=== PATIENT | male | born 1950 | race Caucasian/White ===

== ENCOUNTER 2017-01-31 10:49 | Inpatient (IN) | payer OTHER ==
[~2017-01-31] VITALS: Ht 180.3 cm; Wt 116.1 kg
[2017-02-22] MEDS ORDERED: ASPIRIN81 MG (13:24)
[2017-02-22] MEDS ORDERED: VITAMIN D3400 UNIT PO (13:24)
[2017-02-22] MEDS ORDERED: PROSTEON TABLE1 EACH PO (13:25)
--- NOTE | 2017-02-25 09:07 | NUR ---
02/25/17 0907 Farnaz Marshall 0846 - PT ARRIVED TO PACU. MAINTAINING OWN AIRWAY. RESPONDING TO STIMULI. UNABLE TO ASSESS SPINAL LEVEL AT THIS TIME R/T PT NOT ANSWERING QUESITONS.
--- NOTE | 2017-02-25 09:49 | NUR ---
PATIENT ARRIVED TO MED SURG. PATIENT DENIES PAIN AT THIS TIME.
--- NOTE | 2017-02-25 10:22 | NUR ---
ASSESSMENT COMPLETE. RIGHT KNEE DRESSING IS CDI. PATIENT ENDORSES NUMBNESS AND TINGLING TO BILATERAL LEGS. KRYO CUFF IN PLACE, VSS. 0930 TORADOL GIVEN FOR PACU. IVF INFUSING AT 125ML/HOUR. IN ROOM WITH PATIENT. O2 SATS ARE 93% ON 2L NC. CLEAR LIQUID TRAY ORDERD FOR PATIENT.
--- NOTE | 2017-02-25 11:05 | NUR ---
PATIENT CONTINUES TO BE PAIN FREE. VITALS ARE STABLE. PATIENT TOLERATED CLEAR LIQUID DIET AND IS SLOWLY ADVANCING TO REGULAR DIET.
--- NOTE | 2017-02-25 11:27 | NUR ---
REVIEWED MEDICATIONS, PATIENT IS TAKING ASPIRIN AND VITAMIN D PRIOR TO ADMISSION, HE HAS PICKED UP THE RIVAROXABAN DISCHARGE PRESCRIPTION 7 [facility] SU[facility]
--- NOTE | 2017-02-25 13:10 | NUR ---
PT RESTING IN BED. ALERT AND ORIENTED. WELCOMED ME IN, AND SAID HE IS MOTIVATED TO RECOVER. HE PLANS ON DOING "EVERYTHING" ASKED OF HIM. HE IS PLANNING ON P.T. TO BEGIN AND ENCOURAGED HIM TO STAY ON TOP OF HIS PAIN. HE MENTIONED THAT HE HAD HEARD THAT. PT REQUESTED PRAYER, WILL FOLLOW NEEDED
--- NOTE | 2017-02-25 14:22 | NUR ---
PT WORKED WITH PHYSICAL THERAPY. TOLERATED WELL PER THERAPIST. NO COMPLAINTS OF PAIN.
--- NOTE | 2017-02-25 17:13 | NUR ---
MACIAS PLACED FOR 862ML BLADDER SCAN AFTER UNABLE TO VOID. RIGHT KNEE DRESSING C/D/I. SBA WITH FWW. PAIN WELL CONTROLLED WITH SCHEDULED MEDS. REG DIET. [id number] @ 125.
--- NOTE | 2017-02-25 19:50 | NUR ---
REPORT RECEIVED FROM PROJECT MANAGER RETAIL.
--- NOTE | 2017-02-25 22:55 | NUR ---
PT ASSESSMENT COMPLETE. PT RATES PAIN 1/10 TO R KNEE, DENIES NAUSEA, REPORTS THAT ITCHING IS WELL CONTROLLED. MEPILEX DRESSING TO R KNEE HAS A SMALL AMOUNT OF RED SHADOWING PRESENT WITH NO SHADOWING PRESENT TO ABD OR LORENA WRAP. CRYOCUFF TO R KNEE. TEDS AND SCD'S PRESENT BILATERALLY. CMS INTACT. PT REPORTS SLIGHT NUMBNESS CONTNUING TO BE PRESENT TO LOWER EXTREMITIES. MACIAS DRAINING CLEAR YELLOW URINE. PT DENIES NEEDS AT THIS TIME, SITTING UP PLAYING CELL PHONE. CALL LIGHT WITHIN REACH.
--- NOTE | 2017-02-26 01:35 | NUR ---
PT RESTING WITH EYES CLOSED. RESPIRATIONS EVEN AND UNLABORED. SAO2 @ 87%. PT WAKES EASILY TO DOOR OPENING. STATES THE WAS "SOUND ASLEEP". PT DENIES PAIN, STATES THAT ITCHING IS TOLERABLE. O2 PLACED @ 1LPM FOR DESATURATION, SAO2 @ 94%. PT DENIES NEEDS AT THIS TIME. CALL LIGHT EDUCATINO PROVIDED PT STATES UNDERSTANDING, CALL LIGHT WITHIN REACH.
--- NOTE | 2017-02-26 03:05 | NUR ---
PT ASSESSMENT COMPLETED. PT RATES PAIN 0/10. STATES THAT ITCHING IS WELL CONTROLLED. DENIES NAUSEA. SAO2 94-96% ON 1 LPM. SHADOWING REMAINS UNCHANGED FROM PREVIOUS ASSESSMENT. CMS REMAINS INTACT. PT STATES THAT NUMBNESS TO LOWER EXTREMITIES IS SUBSIDING. CRYOCUFF, TEDS, SCDS ON PLACE. IS AT BEDSIDE. MACIAS DRAINING CLEAR YELLOW URINE. IV SL. PT'S ICE WATER REFILLED. DENIES OTHER NEEDS AT THIS TIME. CALL LIGHT WITHIN REACH.
--- NOTE | 2017-02-26 04:01 | NUR ---
PT SITTING IN BED AWAKE, PLAYING ON HIS CELL PHONE. PT STATES THAT HE IS "WIDE AWAKE". REPORTS THAT ITCHING IS INCREASING. REQUESTS PRN BENADRYL. PT DENIES PAIN, NAUSEA. ALL PRECAUTIONS REMAIN IN PLACE. PT DENIES FURTHER NEEDS, CALL LIGHT WITHIN REACH.
--- NOTE | 2017-02-26 04:59 | NUR ---
PT SLEPT MOST OF NIGHT. DENIES PAIN, N/V. PT C/O ITCHING WELL CONTROLLED WITH PRN BENADRYL. MEPILEX, ABD, AND LORENA WRAP PRESENT TO R KNEE. SMALL AMOUNT OF RED SHADOWING PRESENT TO MEPILEX. CRYOCUFF, TEDS, AND SCD'S IN PLACE. IS AT BEDSIDE. SBA WITH FWW. REGULAR DIET. IV SL.
--- NOTE | 2017-02-26 06:53 | NUR ---
PT ASSESSMENT COMPLETED. PT STATES THAT ITCHING IS WELL CONTROLLED. DENIES NAUSEA. RATES PAIN 3/10. REPORTS THAT 5/10 IS TOLERABLE, STATES THAT HE IS COMFORTABLE. PAIN MANAGEMENT EDUCATION PRIVDED PT STATES UNDERSTANDING. DRESSING TO R KNEE C/D/I, UNCHANGED FROM PREVIOUS ASSESSMENT. ALL PRECAUTIONS REMAIN IN PLACE. MACIAS CATH REMOVED PER STANDING ORDER. PT TOLERATED WELL. PT DENIES NEEDS AT THIS TIME. CALL LIGHT WITHIN REACH.
--- NOTE | 2017-02-26 08:05 | NUR ---
PT. IS SITTING IN CHAIR EATING BREAKFAST. MORNING MEDS GIVEN, ASSESSMENT DONE. PT. RATES PAIN AT 2/10 IN RIGHT KNEE. DENIES NEEDS FOR NV PAIN MEDS. NO FURTHER NEEDS AT THIS TIME.
--- NOTE | 2017-02-26 08:53 | OR ---
[facility] [address], [place] [address] Signed DATE OF OPERATION: 02/25/2017. PREOPERATIVE DIAGNOSIS: DJD, right knee. POSTOPERATIVE DIAGNOSIS: DJD, right knee. PROCEDURE PERFORMED: Right total knee arthroplasty with computer navigation. SURGEON: Ysabel Watson MD. ASSISTANTS Gianna Whitman PA-C. Gianna was present for the entire surgery in critical positioning, retraction, wound closure. SUDHA Gibbons. TOURNIQUET TIME: 66 minutes. IMPLANTS: [place] Triathlon size 6, femur, size 6 tibia, 9 mm insert and 40 patella. BRIEF HISTORY: Sacha is a 67-year-old gentleman with progressive worsening of osteoarthritis. Nonoperative treatment failed and he wished to proceed with operative intervention. Risks, benefits alternatives were discussed at length. He elected to proceed. Once consent was obtained, he was taken to the operating room. After adequate anesthesia, he was placed on operating table. All downside pressure points were well padded. The right k n ee was placed in well-padded proximal thigh tourniquet, prepped and draped in a standard sterile fashion, exsanguinated using Esmarch bandage. Tourniquet inflated to 250 mmHg. Standard anterior approach through curved incision was taken through the skin a n d subcutaneous tissue. Median parapatellar arthrotomy was performed. The infrapatellar fat pad was excised and the insoles of a sleeve, subperiosteal around the level of the posterior corner. The knee was flexed. The ACL was transected as was the anterior horns of the menisci. The navigation guide was pinned to the distal femur. The femur was registered with the computer. The cutting block was then pinned in neutral alignment. The distal femoral cut was made. The distal femur sized to a 6 and the AP cutting block was pinned in line with the epicondylar axis. Anterior, posterior, chamfer cuts were made. The bone and osteophytes removed. Attention was then turned to proximal tibia. Navigation guide was pinned and the tibia was registered with the computer. The cutting block was then pinned in neutral alignment and the tibial cut was made with care taken to protect the patellar tendon and MCL. The bone was excised as well as any meniscal remnants. Posterior release performed off the femur and posterior osteophytes Electronically Signed By: YSABEL WATSON MD 02/26/17 0853 PATIENT NAME: ENRIQUE ANN I OPERATIVE REPORT DATE OF : 50 PHYSICIAN: YSABEL WATSON MD REPORT #: [id number] REPORT IS CONFIDENTIAL AND NOT TO BE RELEASED WITHOUT AUTHORIZATION [facility] [address], [place] [address] Signed removed. Flexion-extension gaps were sized, found to be symmetric at 9 mm. The trials were positioned. He was taken through range of motion and found to be stable. The patella was cut sized and drilled for 40 patella. The tibial keel was then punched a n d the femoral holes were drilled on the distal end. The trial was removed. The bone was pulse lavaged, packed with a dry Ray-Lavinia. Cement was mixed. When it reached proper consistency, it was placed on all bone surfaces and all implants. Tibia was impacted into position first followed by the polyethylene. The femur was impacted and again all excess cement was removed with both prostheses. Knee was extended and nicely loaded. The patella was clamped. All cement was allowed to harden for 14 minutes. The knee was then flexed and the remaining cement was removed using osteotomes. The knee was pulse lavaged at intervals with 3 L of antibiotic irrigation. The periarticular soft tissues were injected with ropivacaine and Toradol mixture. The arthrotomy was then closed using #1 Stratafix subcutaneous tissue with 0 Stratafix and skin with arely. Knee was dressed with Mepilex dressing, ABD and Soham wrap. He tolerated procedure well. All sponge, needle, instrument counts were correct. Ysabel Watson MD BA/Bijul /[id number] Electronically Signed By: YSABEL WATSON MD 02/26/17 0853 PATIENT NAME: ENRIQUE ANN I OPERATIVE REPORT DATE OF : 50 PHYSICIAN: YSABEL WATSON MD REPORT #: [id number] REPORT IS CONFIDENTIAL AND NOT TO BE RELEASED WITHOUT AUTHORIZATION
--- NOTE | 2017-02-26 10:33 | NUR ---
PT. IS SITTING IN CHAIR WATCHING TV. STATES PAIN IS A 4/10 IN RIGHT KNEE FROM AMBULATION. REFILLED WATER. DENIES NEED FOR PAIN MEDICATION RIGHT NOW, BUT WANTS PAIN MEDS BEFORE PT.
--- NOTE | 2017-02-26 10:47 | NUR ---
PATIENT SITTING UP IN CHAIR WITH PT. TIERA ICE WATER. ICE IN CRYO. TALKED TO PATIENT ABOUT WASHING UP WHEN PT LEAVES.
--- NOTE | 2017-02-26 12:23 | NUR ---
PT. BACK FROM PHYSICAL THERAPY SITTING IN CHAIR EATING LUNCH. REPORTING PAIN IN RIGHT KNEE AT 6/10. NORCO GIVEN AT 1154. WILL REASSESS PAIN AT 1300. NO FURTHER NEEDS AT THIS TIME.
--- NOTE | 2017-02-26 13:04 | NUR ---
PT. SITTING IN CHAIR WATCHING TV. STATES PAIN IS 7/10 IN RIGHT KNEE. WILL ADMINISTER PAIN MEDS PER EMAR. NO FURTHER NEEDS AT THIS TIME.
--- NOTE | 2017-02-26 13:16 | NUR ---
patient sitting up in chair dressed in home clothes. Patient washed hands and face with wash cloth. Patient states he will brush teeth next time he is up to bathroom. Bathing clothes left in bathroom if he decides to use. Patient states that he's been really happy with his care here and has nothing but nice things to say about [facility]. call button in reach no other needs at this time.
--- NOTE | 2017-02-26 13:53 | NUR ---
PATIENT UP TO BATHROOM WITH ONE PERSON ASSIST TO VOID 500ML. PATIENT ENCOURAGED TO USE CALL LIGHT AND ASK FOR ASSISTANCE BEFORE AMBULATING.
--- NOTE | 2017-02-26 14:18 | NUR ---
PT. SITTING IN CHAIR WATCHING TV. PAIN RATING AT 8/10 IN RIGHT KNEE. PAIN MEDICATION CAGER OPERATOR PER EMAR. NO FURTHER REQUESTS AT THIS TIME.
--- NOTE | 2017-02-26 14:26 | NUR ---
VITALS AND I&O DONE. NO FURTHER NEEDS AT THIS TIME.
--- NOTE | 2017-02-26 16:42 | NUR ---
PT. SITTING IN CHAIR WATCHING TV. PAIN IS AT 8/10 IN RIGHT KNEE. PAIN MEDICATION TOURIST INFORMATION OFFICER PER EMAR. PT. UP TO BATHROOM. ASSESSMENT DONE. NO FURTHER REQUESTS AT THIS TIME.
--- NOTE | 2017-02-26 18:26 | NUR ---
PT. HAS BEEN RESTING IN BED AND CHAIR WATCHING TV THROUGHOUT SHIFT. PT. COMPLAINED OF RIGHT KNEE PAIN THROUGHOUT THE SHIFT. PAIN MEDICATION GIVEN THROUGHOUT SHIFT WITH PT. STATING ADEQUATE RELIEF. PT. VOIDED FREQUENTLY THROUGHOUT SHIFT AFTER MACIAS DC PREVIOUS SHIFT. VITAL SIGNS STABLE THROUGHOUT. SHIFT. NO ACUTE CHANGES FROM BEGINNING OF SHIFT ASSESSMENT. INTENTIONAL ROUNDING DONE WITH ALL PATIENT'S NEEDS MET.
--- NOTE | 2017-02-26 18:32 | NUR ---
PATIENT IN CHAIR WITH BY HIS SIDE. FRESH ICE WATER. ICE IN CRYO CUFF. CALL BUTTON IN REACH.
--- NOTE | 2017-02-26 18:48 | NUR ---
PT. STATES PAIN IN RIGHT KNEE IS A 9/10 AFTER NORCO ADMINISTRATION. TAPENTADOL GIVEN. PT. AMBULATED IN [place] AND WENT TO BATHROOM. NO OTHER NEEDS AT THIS TIME.
--- NOTE | 2017-02-26 19:00 | NUR ---
BEDSIDE REPORT RECEIVED FROM OFFGOING NURSE. PT LYING IN BED WITH AT BEDSIDE VISITING. PT STATES THAT HE WORKED HARD TODAY WITH PT, AND HAS BEEN UP AMBULATING IN [place]. PT AGREES THAT PAIN IS WORSE TODAY AFTER ALL OF THE ACTIVITY. DRESSING OBSERVED WITH OFFGOING NURSE. RED SHADOWING PRESENT TO MEPILEX, NOT THROUGH TO ABD OR LORENA WRAP. PT DENIES NEEDS AT THIS TIME. CALL LIGHT WITHIN REACH.
--- NOTE | 2017-02-26 20:59 | NUR ---
PT ASSESSMENT COMPLETE. PT LYING IN BED WITH EYES CLOSED. APPEARS TO BE SLEEPING. WAKES EASILY. PT STATES THAT PAIN IS DOWN TO 6.5/10. SCHEDULED TORADOL GIVEN. PT AGREES TO CALL IF PAIN IS AT AN INTOLERABLE LEVEL. PT NOTIFIED THAT HE HAS NORCO AVAILABLE SHOULD HE NEED IT. DRESSING TO R KNEE HAS SHADOWING PRESENT TO MEPILEX, NO SHADOWING NOTED TO ABD OR LORENA WRAP. CRYOCUFF, TEDS, AND SCD'S IN PLACE. IS AT BEDSIDE. PT DENIES OTHER NEEDS AT THIS TIEM. CALL LIGHT WITHIN REACH.
--- NOTE | 2017-02-26 21:16 | NUR ---
PT UP TO USE BATHROOM WITH STANDBY ASSIST AND FWW. PT TOLERATED WELL. RATES PAIN 8/10 AFTERWARD. PRN NORCO ADMINISTERED. PT AGREES TO CALL IF PAIN DOES NOT SUBSIDE. DENIES OTHER NEEDS AT THIS TIME. CALL LIGHT WITHIN REACH.
--- NOTE | 2017-02-26 22:32 | NUR ---
PT UP TO USE THE BATHROOM WITH FWW AND SBA. PT TOLERATED WELL. HE STATES THAT HIS PAIN IS "BETTER", RATES 7-8. PT DENIES NEEDS AT THIS TIME. ALL PRECAUTIONS REPLACED WHEN PT ASSISTED BACK TO BED. CALL LIGHT WITHIN REACH.
--- NOTE | 2017-02-26 23:50 | NUR ---
PT RESTING IN BED WITH EYES CLOSED. RESPIRATIONS EVEN AND UNLABORED. PT APPEARS TO BE SLEEPING. CALL LIGHT WITHIN REACH.
--- NOTE | 2017-02-27 02:30 | NUR ---
PT RESTING IN BED WITH EYES CLOSED. WAKES EASILY. RATES PAIN 5/10, STATES THIS IS COMFORTALBE. SCHEDULED TORADOL GIVEN. PT ASSESSMENT COMPLETE. RED SHADOWING PRESENT TO MEPILEX REMAINS UNCHANGED FROM PREVIOUS ASSESSMENT. ALL PRECAUTIONS REMAIN IN PLACE. IS AT BEDSIDE, PT DEMONSTRATES APPROPRIATE USE. NO REPORTS OF NAUSEA OR ITCHING. PT DENIES NEEDS AT THIS TIME. CALL LIGHT WITHIN REACH.
--- NOTE | 2017-02-27 02:45 | NUR ---
PT UP TO USE THE BATHROOM WITH SBA AND FWW. PT TOLERATED WELL, ASSISTED BACK TO BED. ALL PRECAUTIONS REPLACED. PT STATES THAT PAIN IS ELEVATED TO 7-8/10. PT REQUESTS PRN NORCO. DENIES OTHER NEEDS AT THIS TIME. CALL LIGHT WITHIN REACH. PT SITTING UP USING CELL PHONE IN BED.
--- NOTE | 2017-02-27 04:42 | NUR ---
UNEVENTFUL NIGHT. PT RESTED WELL. PRN NORCO X 2 EFFECTIVE IN RELIEVING PT'S PAIN. MEPILEX HAS RED SHADOWING PRESENT. ABD AND LORENA WRAP ARE C/D/I. CRYO, TEDS, SCDS. IS AT BEDSIDE. UO QS. IV SL. 1 PA WITH FWW.
--- NOTE | 2017-02-27 07:25 | NUR ---
REPORT RECEIVD FROM DINO HERNANDEZ. PT UP IN CHAIR AND STATES HE SLEPT VERY WELL LAST NIGHT. RATES PAIN 12/29.
--- NOTE | 2017-02-27 08:35 | NUR ---
patient sitting up in chair. washed face and hands. oral care done. patient will call to bathe when his gets here with his clean clothes. call buttons in reach. warm blankets given. ice in cryo. fresh ice water given. no other needs at this time.
--- NOTE | 2017-02-27 08:46 | NUR ---
PT. SITTING IN CHAIR WATCHING TV. REPORTING PAIN AT 7/10 IN RIGHT KNEE. PAIN MEDICATION GIVEN PER EMAR. PT. TAKEN TO BATHROOM AT PLACED BACK IN BED. NO FURTHER NEEDS AT THIS TIME.
--- NOTE | 2017-02-27 09:38 | NUR ---
PT. IS SITTING IN BED WATCHING TV. ASKED FOR TEMP. OF ROOM TO BE TURNED DOWN. NO FURTHER NEEDS AT THIS TIME.
[2017-02-27] MEDS ORDERED: HYDROCODON-ACE1 EA11 PO (10:14)
[2017-02-27] MEDS ORDERED: XARELTO10 MG PO (10:14)
[2017-02-27] MEDS ORDERED: NUCYNTA50 MG PO (10:14)
[2017-02-27] MEDS ORDERED: MIRALAX17 GM PO (10:15)
--- NOTE | 2017-02-27 10:45 | NUR ---
DISCHARGE INSTRUCTIONS GIVEN, PT. VERBALIZED UNDERSTANDING. NOTIFIED THE PATIENT THAT PHARMACY WOULD BE IN TO DISCUSS HIS MEDICATIONS IN FURTHER DETAIL. REQUESTING PAIN MEDICATION. NO FURTHER NEEDS AT THIS TIME.
--- NOTE | 2017-02-27 11:27 | NUR ---
PAIN MEDICATION ADMINISTERED. SANGENOUS DRAINAGE NOTED OUT OF INCISION FROM RIGHT KNEE. INCISION CLEANED AND NEW DRESSING APPLIED AND IV REMOVED. NO FURTHER NEEDS AT THIS TIME.
--- NOTE | 2017-02-27 11:43 | NUR ---
PT. UP TO BATHROOM. NO FURTHER REQUESTS AT THIS TIME.
--- NOTE | 2017-02-27 13:07 | NUR ---
IV REMOVED, WITHIN NORMAL LIMITS, DISCHARGE INSTRUCTIONS GIVEN AND PT. VERBALIZED UNDERSTANDING. VITAL SIGNS STABLE, PT. DENIES CONCERNS, DC'D WITH .
--- NOTE | 2017-02-27 13:15 | NUR ---
PT DRESSED AND READY TO BE DC'D. HIS IS HERE AND HE THANKED ME FOR THE VISITS HE RECEIVED. GOD BLESS.
--- NOTE | 2017-02-27 14:30 | NUR ---
FAXED ORDER AND CHART NOTES, INCLUDING FACESHEET, ORDER, H AND P, OP NOTE, HOSP H AND P, PROG NOTES, MEDS, LABS, PT AND OT EVAL AND NOTES TO [facility] OP PT. TALKED WITH TG FROM [facility] OP PT.
--- NOTE | 2017-03-04 07:09 | DS ---
[facility] [address], [place] [address] Signed DATE OF DISCHARGE: 02/27/17 ADMISSION DIAGNOSIS Degenerative joint disease of right knee. DISCHARGE DIAGNOSIS Degenerative joint disease of right knee. PROCEDURE PERFORMED DURING THIS HOSPITALIZATION Right total knee arthroplasty. BRIEF HISTORY Enrique is a 67-year-old gentleman with progressive worsening of osteoarthritis. Risks and benefits of operative treatment were discussed with him and he elected to proceed. Once the consent was obtained, he was taken to the operating room, underwent the above-named procedure. He tolerated this well and was taken to recovery room and subsequently to orthopedic floor. Pain control was adequate throughout his hospitalization with [place] 7.5 and Tapentadol. DVT prophylaxis was provided using SCDs, TEDs and Xarelto 10 mg p.o. daily. He was seen by Physical Therapy and able ambulate down the hallway up and down stairs by the day of discharge. He will be discharged home with outpatient physical therapy and his current medications. He will follow up with me in 10-14 days. Ysabel Watson MD BA/Joseph / [id number] cc: Mirna Hurt NP Electronically Signed By: YSABEL WATSON MD 03/04/17 0709 PATIENT NAME: ENRIQUE ANN I DISCHARGE SUMMARY DATE OF : 50 PHYSICIAN: YSABEL WATSON MD REPORT #: [id number] REPORT IS CONFIDENTIAL AND NOT TO BE RELEASED WITHOUT AUTHORIZATION
== END 2017-02-27 12:42 | disposition home or self-care (01) | DRG 470 ==
LOC: DSVR 02-25 05:50 → MS 02-25 06:45
PROVIDERS: ADMIT Specialist
PROC: 3E0T3CZ (ICD-10-PCS; 2017-02-25)
PROC: 0SRC0J9 Replacement of Right Knee Joint with Synthetic Substitute, Cemented, Open Approach (ICD-10-PCS; principal; 2017-02-25 06:45)
DX: M17.11 Unilateral primary osteoarthritis, right knee (principal); M54.16 Radiculopathy, lumbar region
CPT/HCPCS: 01402; 36415; 64447; 76942; 80048; 85025; 94760; 94762; 97110; 97116; 97161; C1713; C1776; J0690; J0735; J1200; J1885; J2250; J2274; J2704; J7120

== ENCOUNTER 2022-03-09 05:47 | Day surgery (SDC) | payer OTHER ==
[~2022-03-09] VITALS: Ht 180.3 cm; Wt 118.2 kg
[~2022-03-09 05:47] MED LIST: ASPIRIN81 MG; CENTRUM SILVER1 EAC2 PO; FLOMAX0.4 MG PO; HYDROCODON-ACE1 EA11 PO; LIDODERM1 EACH TD; LOPERAMIDE2 MG PO; MIRALAX17 GM PO; NAPROSYN500 MG PO; NAPROXEN500 MG PO; NUCYNTA50 MG PO; PROSTEON TABLE1 EACH PO; VITAMIN B COMP1 EAC1 PO; VITAMIN C100 MG PO; VITAMIN D3400 UNIT PO; XARELTO10 MG PO
[2022-03-09] MEDS ORDERED: HYDROCODON-ACE1 EA10 PO (07:20)
--- NOTE | 2022-03-09 07:25 | NUR ---
03/09/22 0725 Elsa Salgado 4795 PT ARRIVED TO PACU ON RA AND AWAKE AND TALKING TO RN. VSS. PT DENIES PAIN AND NAUSEA.
--- NOTE | 2022-03-12 06:59 | OR ---
[facility] [address], [place] [address] Signed DATE OF OPERATION: 03/09/2022 SURGEON: Ysabel Watson MD PREOPERATIVE DIAGNOSIS: Right middle trigger finger. POSTOPERATIVE DIAGNOSIS: Right middle trigger finger. PROCEDURE PERFORMED: Right middle trigger finger release. HEALTH SCIENCES PROGRAM COORDINATOR: None. ANESTHESIA: Nba block. TOURNIQUET TIME: 12 minutes. BRIEF HISTORY: Enrique is a 72-year-old gentleman with painful locking in his middle finger. Risks and benefits of operative treatment were discussed with him. He elected to proceed. DESCRIPTION OF PROCEDURE: Once consent was obtained, he was taken to the operating room. After adequate anesthesia, he was placed on the hand table utilizing the day surgery bed. The arm was prepped and draped in the standard sterile fashion and the trigger finger was approached through a 1 cm incision in the distal palmar crease. This was carried through the skin and subcutaneous tissue and directly down on the flexor tendon sheath. The soft tissue was cleared away and the A1 travis was identified under loupe magnification. It was then released using tenotomy scissors. The patient was able to fully flex and fully extend his hand without any triggering or locking. The wound was copiously irrigated with normal saline, closed with 3-0 nylon and infiltrated with 6 mL of 0.25% plain Marcaine. The wound was dressed with bacitracin, Adaptic, 4 x 8s, and gauze. He tolerated the procedure well. All sponge, needle, and instrument counts were correct. Electronically Signed By: YSABEL WATSON MD 03/12/22 0659 PATIENT NAME: ENRIQUE ANN I OPERATIVE REPORT DATE OF : 50 REPORT #: [id number] PHYSICIAN: YSABEL WATSON MD PCP: ELLA CID MD REPORT IS CONFIDENTIAL AND NOT TO BE RELEASED WITHOUT AUTHORIZATION [address] [address] Signed Ysabel Watson MD /[facility] [place] /[id number] Copies: ~ Electronically Signed By: YSABEL WATSON MD 03/12/22 0659 PATIENT NAME: ENRIQUE ANN I OPERATIVE REPORT DATE OF : 50 REPORT #: [id number] PHYSICIAN: YSABEL WATSON MD PCP: ELLA CID MD REPORT IS CONFIDENTIAL AND NOT TO BE RELEASED WITHOUT AUTHORIZATION
== END 2022-03-09 08:00 | disposition home or self-care (01) ==
LOC: DS 05:47
PROVIDERS: ATTEND Specialist
PROC: 0LN70ZZ Release Right Hand Tendon, Open Approach (ICD-10-PCS; principal; 2022-03-09 07:30)
DX: M65.331 Trigger finger, right middle finger (principal); Z96.651 Presence of right artificial knee joint
CPT/HCPCS: J0690; J1885; J2001; J2704; J7121

== ENCOUNTER 2022-07-11 14:22 | Emergency (ER) | payer BC, MEDICARE ==
[~2022-07-11] VITALS: Ht 180.3 cm; Wt 113.4 kg
[~2022-07-11 14:22] MED LIST changes: +HYDROCODON-ACE1 EA10 PO
== END 2022-07-11 19:25 | disposition home or self-care (01) ==
LOC: ED 14:22
DX: H60.93 Unspecified otitis externa, bilateral (principal); Z79.899 Other long term (current) drug therapy; Z20.822 Contact with and (suspected) exposure to COVID-19
CPT/HCPCS: 87502; 99283; U0003

== ENCOUNTER 2022-10-23 11:56 | Emergency (ER) | payer BC, MEDICARE ==
[~2022-10-23] VITALS: Ht 180.3 cm; Wt 126.5 kg
[2022-10-23] MEDS ORDERED: PREDNISONE20 MG PO (14:44)
[2022-10-23] MEDS ORDERED: VENTOLIN HFA18 GM INH (14:44)
== END 2022-10-23 15:12 | disposition home or self-care (01) ==
LOC: ED 11:56
DX: J40 Bronchitis, not specified as acute or chronic (principal); E66.9 Obesity, unspecified; M19.90 Unspecified osteoarthritis, unspecified site; Z79.899 Other long term (current) drug therapy
CPT/HCPCS: 71046; 94640; 99285-25; J7512

== ENCOUNTER 2023-09-06 13:16 | Emergency (ER) | payer OTHER, BC, MEDICARE ==
[~2023-09-06] VITALS: Ht 180.3 cm; Wt 126.8 kg
[~2023-09-06 13:16] MED LIST changes: +PREDNISONE20 MG PO; +VENTOLIN HFA18 GM INH
[2023-09-06] MEDS ORDERED: HYDROCODONE/ACETA 5/325 TAB PO ONE (15:00)
[2023-09-06 17:58] VITALS: BP 157/115
== END 2023-09-06 18:00 | disposition home or self-care (01) ==
LOC: ED 13:16
DX: M48.02 Spinal stenosis, cervical region (principal); G95.20 Unspecified cord compression; E66.9 Obesity, unspecified; N40.0 Benign prostatic hyperplasia without lower urinary tract symptoms; M19.90 Unspecified osteoarthritis, unspecified site; Z79.899 Other long term (current) drug therapy; Z68.39 Body mass index [BMI] 39.0-39.9, adult; W01.0XXA Fall on same level from slipping, tripping and stumbling without subsequent striking against object, initial encounter; Y92.811 Bus as the place of occurrence of the external cause; Y99.0 Civilian activity done for income or pay
CPT/HCPCS: 72125; 99284-25

== ENCOUNTER 2024-02-09 13:17 | Emergency (ER) | payer BC, MEDICARE ==
[~2024-02-09] VITALS: Ht 180.3 cm; Wt 124.4 kg
[2024-02-09 15:18] VITALS: BP 159/96
== END 2024-02-09 15:18 | disposition home or self-care (01) ==
LOC: ED 13:17
DX: M51.36 Other intervertebral disc degeneration, lumbar region (principal); M47.816 Spondylosis without myelopathy or radiculopathy, lumbar region; N40.0 Benign prostatic hyperplasia without lower urinary tract symptoms; E66.9 Obesity, unspecified; Z96.651 Presence of right artificial knee joint; Z79.899 Other long term (current) drug therapy
CPT/HCPCS: 72100; 99283

== ENCOUNTER 2024-02-28 12:41 | Emergency (ER) | payer OTHER, BC, MEDICARE ==
[~2024-02-28] VITALS: Ht 180.3 cm; Wt 126.8 kg
--- OUTSIDE RECORDS SUMMARY | 2024-02-28 12:43 | XMS ---
PreManage Notification: ENRIQUE ANN Security Rat Trapper Events No recent Security Events currently on file CRITERIA MET - [facility] - 2 Visits in 30 Days CARE PROVIDERS AMNA WILKINS Nurse Practitioner: Family Current PHONE: [phone] Ze has no Care Guidelines for this patient. Dasha VISIT COUNT (12 MO.) 3 [facility] TOTAL 3 NOTE: Visits indicate total known visits. ED/UCC VISIT TRACKING (12 MO.) 02/28/2024 12:43 [facility] TYPE: Emergency COMPLAINT: - DIZZY,HEAD PRESSURE 02/09/2024 13:17 [facility] [place] TYPE: Emergency COMPLAINT: - BACK PAIN DIAGNOSES: - Benign prostatic hyperplasia without lower urinary tract symptoms - Low back pain, unspecified - Obesity, unspecified - Other intervertebral disc degeneration, lumbar region - Other jail (current) drug therapy - Presence of right artificial knee joint - Spondylosis without myelopathy or radiculopathy, lumbar region 09/06/2023 13:19 [facility] [place] TYPE: Emergency COMPLAINT: - FALL, L ARM/R KNEE/UPPER BACK/NECK/HIPS INJURY DIAGNOSES: - Benign prostatic hyperplasia without lower urinary tract symptoms - Body mass index [BMI] 39.0-39.9, adult - Bus as the place of occurrence of the external cause - Civilian activity done for income or pay - Fall on same level from slipping, tripping and stumbling without subsequent striking against object, initial encounter - Obesity, unspecified - Other jail (current) drug therapy - Paresthesia of skin - Spinal stenosis, cervical region - Unspecified cord compression - Unspecified osteoarthritis, unspecified site INPATIENT VISIT TRACKING (12 MO.) No inpatient visits to display in this time frame [email or web address]
[2024-02-28] MEDS ORDERED: GABAPENTIN300 MG PO (12:54)
[2024-02-28] MEDS ORDERED: METOCLOPRAMIDE HCL 10 MG/2 ML SDV IM ONE (13:15)
[2024-02-28] MEDS ORDERED: KETOROLAC TROMETHAMINE 30 MG/ML VIAL IM ONE (13:15)
[2024-02-28] MEDS ORDERED: CYCLOBENZAPRINE10 MG PO (13:54)
[2024-02-28] MEDS ORDERED: METHYLPREDNISOLO4 M1 PO (13:54)
[2024-02-28 14:05] VITALS: BP 148/98
== END 2024-02-28 14:05 | disposition home or self-care (01) ==
LOC: ED 12:41
DX: R51.9 Headache, unspecified (principal); R42 Dizziness and giddiness; E66.9 Obesity, unspecified; N40.0 Benign prostatic hyperplasia without lower urinary tract symptoms; Z79.899 Other long term (current) drug therapy
CPT/HCPCS: 96372; 99283-25; J1885; J2765

== ENCOUNTER 2024-06-14 19:35 | Emergency (ER) | payer OTHER, BC, MEDICARE ==
[~2024-06-14] VITALS: Ht 180.3 cm; Wt 128.9 kg
[~2024-06-14 19:35] MED LIST changes: +CYCLOBENZAPRINE10 MG PO; +GABAPENTIN300 MG PO; +METHYLPREDNISOLO4 M1 PO
[2024-06-14] MEDS ORDERED: FLUTICASONE PRO16 GM (19:51)
[2024-06-14] MEDS ORDERED: VENTOLIN HFA18 GM (19:51)
[2024-06-14] MEDS ORDERED: methylPREDNISolone SOD SUCC 125 MG/2 ML VIAL IV ONE (20:00)
[2024-06-14] MEDS ORDERED: ALBUTEROL/IPRATROPIUM 3 ML NEB INH ONE (20:00)
[2024-06-14 20:20] LABS: BASOPHILS 1.1 % (0-2); EOSINOPHILS 4.9 % (0-6); HEMATOCRIT 43.1 % (35.0-50.0); HEMOGLOBIN 14.4 g/dL (12.0-18.0); LYMPHOCYTES 23.1 % (24-44); MCH 31.3 (27-36); MCHC 33.4 g/dl (30-36); MCV 93.7 fl (81-99); MONOCYTES 12.8 % (0-12); NEUTROPHILS 58.1 % (39-80); PLATELET COUNT 217 K/uL (140-440); RDW 14.8 (10.5-15.0)
[2024-06-14 20:45] LABS: ALBUMIN 3.5 g/dL (3.4-5.0); ALBUMIN/GLOBULIN RATIO 1.09 (1.1-2.4); ANION GAP 13.8 (7-21); BILIRUBIN, TOTAL 0.3 ng/dL (0.2-1.0); BUN/CREATININE RATIO 22.11 (6.0-28.6); CALCIUM 8.7 mg/dL (8.5-10.1); CREATININE, SERUM 1.04 mg/dL (0.70-1.30); POTASSIUM 3.8 mmol/L (3.5-5.1); PROTEIN, TOTAL 6.7 g/dL (6.4-8.2)
[2024-06-14 21:00] LABS: INFLUENZA B NAA NEGATIVE (NEGATIVE); RESPIRATORY SYNCYTIAL VIR NAA NEGATIVE (NEGATIVE)
[2024-06-14] MEDS ORDERED: FLONASE ALLERG9.9 ML NAS (21:13)
[2024-06-14 21:24] VITALS: BP 121/59
== END 2024-06-14 21:25 | disposition home or self-care (01) ==
LOC: ED 19:35
PROVIDERS: Internal Medicine
DX: R09.82 Postnasal drip (principal); J44.89 Other specified chronic obstructive pulmonary disease; N40.0 Benign prostatic hyperplasia without lower urinary tract symptoms; Z79.51 Long term (current) use of inhaled steroids; Z79.899 Other long term (current) drug therapy
CPT/HCPCS: 36415; 71045; 80053; 83880; 84484; 85025; 87502; 94640; 96374; 99285-25; J2919; U0002

== ENCOUNTER 2024-09-25 16:18 | Emergency (ER) | payer OTHER, MEDICARE ==
[~2024-09-25] VITALS: Ht 180.3 cm; Wt 124.7 kg
[~2024-09-25 16:18] MED LIST changes: +FLONASE ALLERG9.9 ML NAS; +FLUTICASONE PRO16 GM; +VENTOLIN HFA18 GM
[2024-09-25] MEDS ORDERED: ALBUTEROL/IPRATROPIUM 3 ML NEB INH PRN (16:45)
[2024-09-25 17:14] LABS: BASOPHILS 1.6 % (0-2); EOSINOPHILS 6.4 % (0-6); HEMATOCRIT 42.6 % (35.0-50.0); HEMOGLOBIN 14.5 g/dL (12.0-18.0); LYMPHOCYTES 32.2 % (24-44); MCH 30.6 (27-36); MCV 90.2 fl (81-99); MONOCYTES 11.7 % (0-12); NEUTROPHILS 48.1 % (39-80); PLATELET COUNT 251 K/uL (140-440); RBC 4.72 M/ul (4.3-5.7); RDW 15.1 (10.5-15.0)
[2024-09-25] MEDS ORDERED: ALBUTEROL/IPRATROPIUM 3 ML NEB INH ONE (17:15)
[2024-09-25] MEDS ORDERED: predniSONE 20 MG TAB PO ONE (17:30)
[2024-09-25 17:32] LABS: ALBUMIN 3.6 g/dL (3.4-5.0); ALBUMIN/GLOBULIN RATIO 1.2 (1.1-2.4); ANION GAP 11.2 (7-21); BILIRUBIN, TOTAL 0.5 mg/dL (0.2-1.0); BUN/CREATININE RATIO 16.48 (6.0-28.6); CALCIUM 9.1 mg/dL (8.5-10.1); CREATININE, SERUM 0.91 mg/dL (0.70-1.30); MAGNESIUM 2.1 mg/dL (1.8-2.4); POTASSIUM 4.2 mmol/L (3.5-5.1); PROTEIN, TOTAL 6.6 g/dL (6.4-8.2)
[2024-09-25] MEDS ORDERED: PREDNISONE20 MG PO (17:41)
[2024-09-25] MEDS ORDERED: VENTOLIN HFA18 GM INH (17:41)
[2024-09-25 19:25] VITALS: BP 156/84
--- NOTE | 2024-09-25 19:54 | EKG ---
[facility] [address] [facility] [place] [address] Signed Normal sinus rhythm Left axis deviation Nonspecific intraventricular conduction delay Nonspecific T wave abnormality Abnormal ECG When compared with ECG of 06-MAR-2022 16:35, premature atrial complexes are no longer present Nonspecific intraventricular conduction delay has replaced Incomplete left bundle branch block Confirmed by Rene Ramirez MD ([id number]) on 09/25/2024 7:54:05 PM Electronically Signed By: RENE RAMIREZ MD 09/25/241953 PATIENT NAME: ENRIQUE ANN I Electrocardiogram DATE OF : 50 PHYSICIAN: RENE RAMIREZ MD REPORT #: [id number] REPORT IS CONFIDENTIAL AND NOT TO BE RELEASED WITHOUT AUTHORIZATION
== END 2024-09-25 19:25 | disposition home or self-care (01) ==
LOC: ED 16:18
PROVIDERS: Emergency Medicine
DX: J44.1 Chronic obstructive pulmonary disease with (acute) exacerbation (principal); E66.9 Obesity, unspecified; Z68.38 Body mass index [BMI] 38.0-38.9, adult; Z79.899 Other long term (current) drug therapy
CPT/HCPCS: 36415; 71045; 80053; 83735; 84484; 85025; 93005; 93010; 94640; 99285-25; J7512

== ENCOUNTER 2025-06-23 20:06 | Emergency (ER) | payer OTHER ==
[~2025-06-23] VITALS: Ht 180.3 cm; Wt 124.7 kg
[2025-06-23 21:38] LABS: INFLUENZA B NAA NEGATIVE (NEGATIVE); RESPIRATORY SYNCYTIAL VIR NAA NEGATIVE (NEGATIVE)
[2025-06-23] MEDS ORDERED: ALBUTEROL/IPRATROPIUM 3 ML NEB INH ONE (22:00)
[2025-06-23 22:20] LABS: BASOPHILS 0.5 % (0.2-1.2); EOSINOPHILS 2.2 % (0.8-7.0); LYMPHOCYTES 23.8 % (21.8-53.1); MCH 30.2 PG (25.7-32.2); MCHC 32.8 g/dL (32.3-36.5); MCV 92.0 fL (79.0-92.2); MONOCYTES 14.2 % (5.3-12.2); NEUTROPHILS 59.0 % (34.0-67.9); RBC 5.03 M/uL (4.63-6.08)
[2025-06-23 22:49] LABS: ALT (SGPT) 31.0 U/L (14-59); AST (SGOT) 26.0 U/L (15-37); GLOMERULAR FILTRATION RATE,EST 72.0 mL/min (>60); PROTEIN, TOTAL 6.9 g/dL (6.4-8.2); UREA NITROGEN 15.0 mg/dL (7-18)
[2025-06-24] MEDS ORDERED: PREDNISONE20 MG PO (00:44)
[2025-06-24] MEDS ORDERED: AMOX TR-K CLV1 EAC1 PO (00:44)
[2025-06-24] MEDS ORDERED: AMOXICILLIN/CLAVULANATE K 875 MG HOME.PACK PO ONE (00:45)
[2025-06-24 00:54] VITALS: BP 151/88
--- NOTE | 2025-06-25 22:10 | EKG ---
[facility] [address] [place] [address] Signed Sinus rhythm with premature atrial complexes Left axis deviation Left ventricular hypertrophy with QRS widening ( R in aVL , Meridian product ) Abnormal ECG When compared with ECG of 25-SEP-2024 16:50, premature atrial complexes are now present Nonspecific T wave abnormality no longer evident in Inferior leads Nonspecific T wave abnormality, improved in Lateral leads Confirmed by Sacha Ventura MD () on 06/25/2025 10:10:12 PM Electronically Signed By: SACHA VENTURA MD 06/25/25 2210 PATIENT NAME: ENRIQUE ANN I Electrocardiogram DATE OF : 50 PHYSICIAN: SACHA VENTURA MD REPORT #: [id number] REPORT IS CONFIDENTIAL AND NOT TO BE RELEASED WITHOUT AUTHORIZATION
== END 2025-06-24 00:56 | disposition home or self-care (01) ==
LOC: ED 20:06
PROVIDERS: Internal Medicine
DX: J44.1 Chronic obstructive pulmonary disease with (acute) exacerbation (principal); M19.90 Unspecified osteoarthritis, unspecified site; Z79.899 Other long term (current) drug therapy
CPT/HCPCS: 36415; 71045; 80053; 83735; 83880; 84484; 85025; 87502; 93005; 93010; 94640; 96374; 99285-25; J2919; U0002